=== PATIENT | female | born 1975 | race Caucasian/White ===

== ENCOUNTER 2016-08-31 09:33 | Inpatient (IN) | payer OTHER ==
[~2016-08-31] VITALS: Ht 168.9 cm; Wt 78.9 kg
[2016-08-31] MEDS ORDERED: LACTATED RINGERS 1,000 ML IV SCH ×2 (09:47→10:00)
[2016-08-31] MEDS ORDERED: OXYTOCIN 30U/ 0.9% NaCL 500ML 500 ML IV SCH (09:47)
[2016-08-31] MEDS ORDERED: LACTATED RINGERS 1,000 ML IVBOLUS ONE (10:00)
[2016-08-31] MEDS ORDERED: METOCLOPRAMIDE 5 MG/ML, 2ML ONE (10:14)
[2016-08-31] MEDS ORDERED: SODIUM CITRATE/CITRIC ACID 30 ML UDC ONE (10:14)
[2016-08-31] MEDS ORDERED: FENTANYL PF 100 MCG/2ML ONE (10:17)
[2016-08-31] MEDS ORDERED: PROMETHAZINE 25 MG/ML, 1ML IV PRN (10:30)
[2016-08-31] MEDS ORDERED: EPHEDRINE 50 MG/ML, 1ML IVPush PRN (10:30)
[2016-08-31] MEDS ORDERED: ALBUTEROL SULFATE 2.5 MG/3 ML NPPB PRN (10:30)
[2016-08-31] MEDS ORDERED: ONDANSETRON 2MG/ML, 2ML IVPush PRN (10:30)
[2016-08-31] MEDS ORDERED: SODIUM CITRATE/CITRIC ACID 30 ML UDC PO ONE (10:30)
[2016-08-31] MEDS: PLEASE ENTER HEIGHT AND WEIGHT MC SCH ×2 (10:30→18:30)
[2016-08-31] MEDS ORDERED: FENTANYL PF 100 MCG/2ML IV PRN (10:30)
[2016-08-31] MEDS ORDERED: MIDAZOLAM 1 MG/ML, 2ML IV PRN (10:30)
[2016-08-31] MEDS ORDERED: METOCLOPRAMIDE 5 MG/ML, 2ML IV ONE (10:30)
[2016-08-31] MEDS ORDERED: hydrALAzine 20 MG/ML, 1ML IV PRN (10:30)
[2016-08-31] MEDS ORDERED: LABETALOL 5MG/ML, 20ML IV PRN (10:30)
[2016-08-31] MEDS ORDERED: HYDROcodone/APAP 7.5-325MG/15ML UDC PO PRN (10:30)
[2016-08-31] MEDS ORDERED: OXYcodone 5 MG/5 ML ORAL.SOL UDC PO PRN (10:30)
[2016-08-31] MEDS ORDERED: MEPERIDINE/PF 25MG/0.5ML IVPush PRN (10:30)
[2016-08-31] MEDS ORDERED: NEWBORN KIT ONE (10:32)
[2016-08-31] MEDS ORDERED: EPHEDRINE 50 MG/ML, 1ML ONE (10:38)
[2016-08-31] MEDS ORDERED: DEXAMETHASONE 4 MG/ML, 1ML ONE (10:38)
[2016-08-31] MEDS ORDERED: ONDANSETRON 2MG/ML, 2ML ONE (10:38)
[2016-08-31] MEDS ORDERED: KETOROLAC 30 MG/1 ML ONE (10:38)
[2016-08-31] MEDS ORDERED: CEFAZOLIN 1,000 MG ONE (10:38)
[2016-08-31 11:29] VITALS: BP 126/66
[2016-08-31] MEDS: OXYTOCIN 30U/ 0.9% NaCL 500ML 500 ML IV SCH ×2 (11:47→21:47)
[2016-08-31] MEDS: LACTATED RINGERS 1,000 ML IV SCH ×4 (11:47→21:47)
[2016-08-31] MEDS ORDERED: ONDANSETRON 2MG/ML, 2ML IV PRN (12:00)
[2016-08-31] MEDS ORDERED: OXYcodone/APAP 5/325MG TABLET PO PRN (12:00)
[2016-08-31] MEDS ORDERED: CALCIUM CARBONATE 500 MG TAB.CHEW PO PRN (12:00)
[2016-08-31] MEDS ORDERED: METOCLOPRAMIDE 5 MG/ML, 2ML IV PRN (12:00)
[2016-08-31] MEDS ORDERED: SIMETHICONE 80 MG CHEW TAB PO PRN (12:00)
[2016-08-31] MEDS ORDERED: ACETAMINOPHEN 325 MG TABLET PO PRN (12:00)
[2016-08-31] MEDS ORDERED: OXYTOCIN 30U/ 0.9% NaCL 500ML 500 ML ONE (13:04)
[2016-08-31 14:35] VITALS: BP 110/61
[2016-08-31] MEDS: KETOROLAC 30 MG/1 ML IV SCH ×3 (15:28→18:15)
[2016-08-31 19:40] VITALS: BP 108/62
[2016-09-01] MEDS: KETOROLAC 30 MG/1 ML IV SCH ×3 (00:07→14:45)
[2016-09-01] MEDS: OXYcodone/APAP 5/325MG TABLET PO PRN ×2 (00:15→20:46)
[2016-09-01 00:19] VITALS: BP 109/64
[2016-09-01] MEDS: LACTATED RINGERS 1,000 ML IV SCH ×2 (03:47→11:47)
[2016-09-01 04:15] VITALS: BP 110/65
[2016-09-01] MEDS ORDERED: PRENATAL VIT/IRON/FA 1 EACH TABLET ONE (07:30)
[2016-09-01] MEDS: DOCUSATE 100 MG CAPSULE PO PRN ×2 (07:41→20:46)
[2016-09-01] MEDS: PRENATAL VIT/IRON/FA 1 EACH TABLET PO SCH (07:41)
[2016-09-01 07:45] VITALS: BP 118/72
[2016-09-01] MEDS: OXYTOCIN 30U/ 0.9% NaCL 500ML 500 ML IV SCH (07:47)
[2016-09-01] MEDS: IBUPROFEN 600 MG TABLET PO PRN ×2 (14:50→20:46)
[2016-09-01 19:45] VITALS: BP 113/68
[2016-09-02] MEDS: OXYcodone/APAP 5/325MG TABLET PO PRN ×3 (03:32→12:02)
[2016-09-02] MEDS: IBUPROFEN 600 MG TABLET PO PRN ×2 (03:32→10:45)
[2016-09-02 06:45] VITALS: BP 117/73
[2016-09-02] MEDS: PRENATAL VIT/IRON/FA 1 EACH TABLET PO SCH (08:12)
[2016-09-02] MEDS: DOCUSATE 100 MG CAPSULE PO PRN (08:12)
[2016-09-02] MEDS ORDERED: IBUP-1222 PO (12:32)
[2016-09-02] MEDS ORDERED: OXYC-302 PO (12:32)
[2016-09-02] MEDS ORDERED: DOCU-30 PO (12:33)
== END 2016-09-02 14:03 | disposition home or self-care (01) | DRG 766 ==
LOC: LDIP 09:33 → 2NW 13:42
PROVIDERS: ADMIT Obstetrics & Gynecology; ATTEND Obstetrics & Gynecology
PROC: 10D00Z1 Extraction of Products of Conception, Low, Open Approach (ICD-10-PCS; principal; 2016-08-31)
DX: O32.8XX0 Maternal care for other malpresentation of fetus, not applicable or unspecified (principal); O99.824 Streptococcus B carrier state complicating childbirth; O09.513 Supervision of elderly primigravida, third trimester; J30.2 Other seasonal allergic rhinitis; Z37.0 Single live birth; Z3A.40 40 weeks gestation of pregnancy; Z88.5 Allergy status to narcotic agent; Z88.0 Allergy status to penicillin
CPT/HCPCS: 36415; 82803; 85025; 86850; 86900; J0690; J1100; J1885; J2405; J3010; J2590; J2765; J7120

== ENCOUNTER → 2016-11-27 | Outpatient (CLI) | payer OTHER ==
[~2016-11-27] MED LIST: DOCU-131 PO; IBUP-1222 PO; OMNIPAQUE 350 MG/ML, 100ML BOTTLE ONE; OXYC-302 PO
== END | disposition home or self-care (01) ==
LOC: CFH 09:03
PROVIDERS: ATTEND Obstetrics & Gynecology
DX: K43.9 Ventral hernia without obstruction or gangrene (principal); M47.897 Other spondylosis, lumbosacral region; Q79.59 Other congenital malformations of abdominal wall
CPT/HCPCS: 74177; Q9967

== ENCOUNTER → 2017-01-01 | Outpatient (CLI) | payer OTHER ==
[~2017-01-01] MED LIST changes: +None per pt; -OMNIPAQUE 350 MG/ML, 100ML BOTTLE ONE
== END ==
LOC: STAR 10:49
PROVIDERS: ATTEND Surgery
DX: Z02.9 Encounter for administrative examinations, unspecified (principal)

== ENCOUNTER 2017-01-09 05:56 | Day surgery (SDC) | payer OTHER ==
[2017-01-01 11:10] VITALS: BP 108/62
[~2017-01-09] VITALS: Ht 167.6 cm; Wt 68.0 kg
[2017-01-09] MEDS ORDERED: LACTATED RINGERS 1,000 ML IV SCH (06:38)
[2017-01-09 06:51] LABS: HCG UR LOT HCG7030192
[2017-01-09 06:55] LABS: HCG UR OBC PASS
[2017-01-09] MEDS ORDERED: LIDOCAINE 1%, 2ML SQ PRN (07:00)
[2017-01-09] MEDS ORDERED: MIDAZOLAM 1 MG/ML, 2ML ONE (07:04)
[2017-01-09] MEDS ORDERED: FENTANYL PF 100 MCG/2ML ONE ×3 (07:04→09:39)
[2017-01-09] MEDS ORDERED: BUPIVACAINE/PF 0.5% ONE (07:14)
[2017-01-09] MEDS ORDERED: PROPOFOL 50 ML ONE (07:22)
[2017-01-09] MEDS ORDERED: ONDANSETRON 2MG/ML, 2ML ONE ×2 (08:18→08:35)
[2017-01-09] MEDS ORDERED: SUCCINYLCHOLINE 20 MG/ML, 10ML ONE (08:18)
[2017-01-09] MEDS ORDERED: ROCURONIUM 10 MG/ML ONE (08:18)
[2017-01-09] MEDS ORDERED: NEOSTIGMINE 1 MG/ML, 10ML ONE (08:18)
[2017-01-09] MEDS ORDERED: DEXAMETHASONE 4 MG/ML, 1ML ONE (08:18)
[2017-01-09] MEDS ORDERED: GLYCOPYRROLATE 0.2MG/1ML, 5ML ONE (08:18)
[2017-01-09] MEDS ORDERED: PROPOFOL 10 MG/ML, 20ML ONE ×2 (08:18→08:38)
[2017-01-09] MEDS ORDERED: CEFAZOLIN 1,000 MG ONE ×2 (08:19)
[2017-01-09] MEDS ORDERED: EPHEDRINE 50 MG/ML, 1ML IVPush PRN (08:30)
[2017-01-09] MEDS ORDERED: HYDROmorphone 1 MG/ML, 1ML IV PRN (08:30)
[2017-01-09] MEDS ORDERED: hydrALAzine 20 MG/ML, 1ML IV PRN (08:30)
[2017-01-09] MEDS ORDERED: PROMETHAZINE 25 MG/ML, 1ML IV PRN (08:30)
[2017-01-09] MEDS ORDERED: FENTANYL PF 100 MCG/2ML IV PRN (08:30)
[2017-01-09] MEDS ORDERED: HYDROcodone/APAP 7.5-325MG/15ML UDC PO PRN (08:30)
[2017-01-09] MEDS ORDERED: MIDAZOLAM 1 MG/ML, 2ML IV PRN (08:30)
[2017-01-09] MEDS ORDERED: ACETAMINOPHEN 325 MG TABLET PO PRN (08:30)
[2017-01-09] MEDS ORDERED: ALBUTEROL SULFATE 2.5 MG/3 ML NPPB PRN (08:30)
[2017-01-09] MEDS ORDERED: DIAZEPAM 5 MG/ML, 2ML IVPush PRN (08:30)
[2017-01-09] MEDS ORDERED: METOPROLOL 1 MG/ML, 5ML IV PRN (08:30)
[2017-01-09] MEDS ORDERED: LABETALOL 5MG/ML, 20ML IV PRN (08:30)
[2017-01-09] MEDS ORDERED: OXYcodone 5 MG/5 ML ORAL.SOL UDC PO PRN (08:30)
[2017-01-09] MEDS ORDERED: ONDANSETRON 2MG/ML, 2ML IVPush PRN (08:30)
[2017-01-09] MEDS ORDERED: MEPERIDINE/PF 25MG/0.5ML IVPush PRN (08:30)
[2017-01-09] MEDS ORDERED: KETOROLAC 30 MG/1 ML ONE (08:41)
[2017-01-09] MEDS ORDERED: MEPERIDINE/PF 25MG/0.5ML ONE (08:56)
[2017-01-09] MEDS ORDERED: OXYcodone 5 MG/5 ML ORAL.SOL UDC ONE (09:39)
[2017-01-09] MEDS ORDERED: ACETAMINOPHEN 650 MG/20.3 ML UDC ONE (09:39)
== END 2017-01-09 13:00 ==
LOC: OUT 05:56
PROVIDERS: ATTEND Surgery
DX: K43.9 Ventral hernia without obstruction or gangrene (principal); D23.5 Other benign neoplasm of skin of trunk; Z98.890 Other specified postprocedural states; Z72.89 Other problems related to lifestyle; Z91.09 Other allergy status, other than to drugs and biological substances; Z88.8 Allergy status to other drugs, medicaments and biological substances
CPT/HCPCS: 49652; 81025; 88305; C1781; J0330; J0690; J1100; J1885; J2175; J2250; J2405; J2704; J2710; J3010; J3490; J7120

== ENCOUNTER 2019-03-16 03:45 | Inpatient (IN) | payer OTHER ==
[~2019-03-16] VITALS: Ht 168.9 cm; Wt 76.4 kg
[2019-03-16] MEDS: LACTATED RINGERS 1,000 ML IV SCH ×4 (02:05→19:38)
[2019-03-16 03:40] VITALS: BP 125/74
[2019-03-16] MEDS ORDERED: OXYTOCIN 30U/ 0.9% NaCL 500ML 500 ML IV ONE (04:07)
[2019-03-16] MEDS ORDERED: D5%-LACTATED RINGERS 1,000 ML IV SCH (04:07)
[2019-03-16] MEDS ORDERED: OXYTOCIN 30U/ 0.9% NaCL 500ML 500 ML IV PRN (04:07)
[2019-03-16] MEDS ORDERED: NEWBORN KIT ONE (04:08)
[2019-03-16] MEDS ORDERED: MISOPROSTOL 200 MCG TABLET ONE (04:08)
[2019-03-16] MEDS ORDERED: OXYTOCIN 30U/ 0.9% NaCL 500ML 500 ML ONE ×2 (04:08→23:25)
[2019-03-16] MEDS ORDERED: LIDOCAINE 1%, 20ML ONE (04:08)
[2019-03-16 04:27] LABS: BASOPHILS # (AUTO) 0.03 x10^3/uL (0-0.1); BASOPHILS % (AUTO) 0 % (0-1); EOSINOPHILS # (AUTO) 0.04 x10^3/uL (0-0.4); EOSINOPHILS % (AUTO) 0 % (1-7); LYMPHOCYTES # (AUTO) 1.88 x10^3/uL (1-3.4); LYMPHOCYTES % (AUTO) 20 % (22-44); MD NO; MEAN CORPUSCULAR HEMOGLOBIN 32.3 pg (27.0-34.8); MEAN CORPUSCULAR HGB CONC 33.6 g/dL (32.4-35.8); MEAN CORPUSCULAR VOLUME 95.9 fL (80-100); MEAN PLATELET VOLUME 7.4 fL (7.4-10.4); MONOCYTES # (AUTO) 0.53 x10^3/uL (0.2-0.8); MONOCYTES % (AUTO) 6 % (2-9); NEUTROPHILS # (AUTO) 7.09 x10^3/uL (1.8-6.8); NEUTROPHILS % (AUTO) 74 % (42-75); PLATELET COUNT 248 x10^3/uL (130-400); RED CELL DISTRIBUTION WIDTH 13.1 % (9.6-15.2)
[2019-03-16] MEDS ORDERED: TERBUTALINE 1 MG/ML, 1ML IVPush PRN (04:30)
[2019-03-16] MEDS ORDERED: METOCLOPRAMIDE 5 MG/ML, 2ML IVPush PRN (04:30)
[2019-03-16] MEDS ORDERED: ONDANSETRON 2MG/ML, 2ML IVPush PRN (04:30)
[2019-03-16] MEDS ORDERED: FENTANYL PF 100 MCG/2ML IV PRN (04:30)
[2019-03-16] MEDS ORDERED: SODIUM CITRATE/CITRIC ACID 30 ML UDC PO PRN (04:30)
[2019-03-16] MEDS ORDERED: PENICILLIN GK 5,000,000 UNITS in DEXTROSE 5% 100 ML IVPB ONE (04:30)
[2019-03-16] MEDS ORDERED: FENTANYL PF 100 MCG/2ML IVPush PRN (04:30)
[2019-03-16] MEDS ORDERED: TERBUTALINE 1 MG/ML, 1ML SQ PRN (04:30)
[2019-03-16] MEDS ORDERED: FENTANYL/BUPIV./NS/PF 250 ML EPIDCONT SCH ×2 (05:25→11:53)
[2019-03-16] MEDS ORDERED: LACTATED RINGERS 1,000 ML IVBOLUS PRN ×2 (05:30→12:00)
[2019-03-16] MEDS ORDERED: EPHEDRINE 50 MG/ML, 1ML IVPush PRN ×2 (05:30→12:00)
[2019-03-16] MEDS: PENICILLIN GK 2,500,000 UNITS in DEXTROSE 5% 100 ML IVPB SCH ×4 (08:55→20:25)
[2019-03-16] MEDS ORDERED: FENTANYL/BUPIV./NS/PF 250 ML EPIDCONT ONE (11:20)
[2019-03-16] MEDS ORDERED: LIDOCAINE/PF 1.5% EPI 1:200K, 10 ML ONE (11:25)
[2019-03-16] MEDS ORDERED: BUPIVACAINE 0.25% ONE (11:25)
[2019-03-16] MEDS ORDERED: LACTATED RINGERS 1,000 ML IV SCH (11:53)
[2019-03-16] MEDS ORDERED: NALOXONE 0.4 MG/ML, 1ML IVPush PRN (12:00)
[2019-03-16] MEDS ORDERED: ONDANSETRON 2MG/ML, 2ML ONE (18:32)
[2019-03-16 19:16] VITALS: BP 103/58
[2019-03-16] MEDS: OXYTOCIN 30U/ 0.9% NaCL 500ML 500 ML IV SCH (22:03)
[2019-03-16] MEDS ORDERED: MISOPROSTOL 200 MCG TABLET PR PRN (22:30)
[2019-03-16] MEDS ORDERED: GLYCERIN ADULT SUPP PR PRN (22:30)
[2019-03-16] MEDS ORDERED: ONDANSETRON 2MG/ML, 2ML IV PRN (22:30)
[2019-03-16] MEDS ORDERED: BISACODYL 10 MG SUPP PR PRN (22:30)
[2019-03-16] MEDS ORDERED: METHYLERGONOVINE 0.2 MG/ML IM PRN (22:30)
[2019-03-16] MEDS ORDERED: ACETAMINOPHEN 325 MG TABLET PO PRN (22:30)
[2019-03-16] MEDS ORDERED: SIMETHICONE 80 MG CHEW TAB PO PRN (22:30)
[2019-03-16] MEDS ORDERED: OXYcodone/APAP 5/325MG TABLET PO PRN (22:30)
[2019-03-16] MEDS ORDERED: METOCLOPRAMIDE 5 MG/ML, 2ML IV PRN (22:30)
[2019-03-16] MEDS ORDERED: OXYcodone/APAP 5/325MG TABLET ONE (23:25)
[2019-03-16] MEDS ORDERED: IBUPROFEN 600 MG TABLET ONE (23:26)
[2019-03-16] MEDS: IBUPROFEN 600 MG TABLET PO PRN (23:30)
[2019-03-16] MEDS: OXYcodone/APAP 5/325MG TABLET PO PRN (23:30)
[2019-03-17] VITALS (8 sets, daily range): BP systolic 93–111; BP diastolic 53–97
[2019-03-17] MEDS: IBUPROFEN 600 MG TABLET PO PRN ×3 (06:06→18:14)
[2019-03-17 07:07] LABS: MEAN CORPUSCULAR HEMOGLOBIN 31.8 pg (27.0-34.8); MEAN CORPUSCULAR HGB CONC 32.9 g/dL (32.4-35.8); MEAN CORPUSCULAR VOLUME 96.8 fL (80-100); MEAN PLATELET VOLUME 7.4 fL (7.4-10.4); PLATELET COUNT 225 x10^3/uL (130-400); RED BLOOD COUNT 3.52 x10^6/uL (3.82-5.3)
[2019-03-17 07:22] LABS: BASOPHILS # (AUTO) 0.09 x10^3/uL (0-0.1); BASOPHILS % (AUTO) 1 % (0-1); EOSINOPHILS # (AUTO) 0.04 x10^3/uL (0-0.4); EOSINOPHILS % (AUTO) 0 % (1-7); LYMPHOCYTES # (AUTO) 1.81 x10^3/uL (1-3.4); LYMPHOCYTES % (AUTO) 12 % (22-44); MD SCAN; MONOCYTES # (AUTO) 0.65 x10^3/uL (0.2-0.8); MONOCYTES % (AUTO) 4 % (2-9); NEUTROPHILS # (AUTO) 12.99 x10^3/uL (1.8-6.8); NEUTROPHILS % (AUTO) 83 % (42-75)
[2019-03-17] MEDS: OXYTOCIN 30U/ 0.9% NaCL 500ML 500 ML IV SCH ×2 (07:30→18:03)
[2019-03-17] MEDS: DOCUSATE 100 MG CAPSULE PO PRN ×2 (07:40→20:07)
[2019-03-17] MEDS: PRENATAL VIT/IRON/FA 1 EACH TABLET PO SCH (07:40)
[2019-03-17] MEDS: OXYcodone/APAP 5/325MG TABLET PO PRN ×2 (14:37→18:14)
[2019-03-18] MEDS: OXYcodone/APAP 5/325MG TABLET PO PRN (04:13)
[2019-03-18 09:15] VITALS: BP 104/71
[2019-03-18] MEDS: DOCUSATE 100 MG CAPSULE PO PRN (09:55)
[2019-03-18] MEDS: PRENATAL VIT/IRON/FA 1 EACH TABLET PO SCH (09:55)
[2019-03-18] MEDS ORDERED: OXYC-302 PO (11:04)
[2019-03-18] MEDS ORDERED: IBUP-1223 PO (11:04)
[2019-03-18] MEDS ORDERED: DOCU-131 PO (11:04)
[2019-03-18] MEDS: IBUPROFEN 600 MG TABLET PO PRN (11:55)
== END 2019-03-18 12:32 | disposition home or self-care (01) | DRG 768 ==
LOC: LDOP 03:45 → LDIP 04:14 → 2NW 03-17 01:30
PROVIDERS: ADMIT Obstetrics & Gynecology; ATTEND Obstetrics & Gynecology
PROC: 10E0XZZ Delivery of Products of Conception, External Approach (ICD-10-PCS; principal; 2019-03-16)
PROC: 06BY3ZC Excision of Hemorrhoidal Plexus, Percutaneous Approach (ICD-10-PCS; 2019-03-16)
PROC: 0KQM0ZZ Repair Perineum Muscle, Open Approach (ICD-10-PCS; 2019-03-16)
PROC: 3E0R3BZ Introduction of Anesthetic Agent into Spinal Canal, Percutaneous Approach (ICD-10-PCS; 2019-03-16)
PROC: 00HU33Z Insertion of Infusion Device into Spinal Canal, Percutaneous Approach (ICD-10-PCS; 2019-03-16)
DX: O34.211 Maternal care for low transverse scar from previous cesarean delivery (principal); Z37.0 Single live birth; O22.43 Hemorrhoids in pregnancy, third trimester; D25.9 Leiomyoma of uterus, unspecified; O70.1 Second degree perineal laceration during delivery; O76 Abnormality in fetal heart rate and rhythm complicating labor and delivery; O99.824 Streptococcus B carrier state complicating childbirth; Z3A.39 39 weeks gestation of pregnancy; O34.13 Maternal care for benign tumor of corpus uteri, third trimester; O42.92 Full-term premature rupture of membranes, unspecified as to length of time between rupture and onset of labor; O69.81X0 Labor and delivery complicated by cord around neck, without compression, not applicable or unspecified
CPT/HCPCS: 36415; J3490; J7121; 85025; 86850; 86900; G0378; J2405; J2540; J2590; J3010; J7120